=== PATIENT | female | born 1995 | race Hispanic/Latino ===

== ENCOUNTER 2023-06-02 13:29 | Emergency (ER) | payer OTHER ==
[~2023-06-02] VITALS: Ht 165.1 cm; Wt 181.4 kg
[2023-06-02] MEDS ORDERED: KETOROLAC 30MG VIAL (30MG/ML) IM ONE (16:30)
[2023-06-02 17:20] LABS: BASOPHILS # (AUTO) 0.04 K/uL (0.00-0.20); BASOPHILS % (AUTO) 0.2 % (0.0-5.0); EOSINOPHILS # (AUTO) 0.02 K/uL (0.00-0.70); EOSINOPHILS % (AUTO) 0.1 % (0.0-8.0); HEMATOCRIT 42.3 % (36-48); IMMATURE GRANULOCYTE ABSOLUTE 0.08 K/uL (0-1); LYMPHOCYTES # (AUTO) 1.4 K/uL (1.0-4.8); LYMPHOCYTES % (AUTO) 7.9 % (21.0-51.0); MEAN CORPUSCULAR HEMOGLOBIN 28.6 pg (27.0-33.0); MEAN CORPUSCULAR HGB CONC 33.1 g/dL (32.0-36.0); MEAN CORPUSCULAR VOLUME 86.5 fL (79-99); MONOCYTES # (AUTO) 0.5 K/uL (0.1-1.0); MONOCYTES % (AUTO) 2.8 % (3.0-13.0); NEUTROPHILS % (AUTO) 88.6 % (40.0-77.0); PLATELET COUNT (AUTO) 264 K/uL (130-400); RED BLOOD CELL COUNT(AUTO) 4.89 MIL/uL (4.00-5.50); RED CELL DISTRIBUTION WIDTH 13.7 % (11.0-15.5)
[2023-06-02 17:20] LABS: HCG,QUALITATIVE URINE NEGATIVE (NEGATIVE)
[2023-06-02 17:23] LABS: ADD UA MICROSCOPIC YES; APPEARANCE,URINE TURBID (CLEAR); BILIRUBIN,URINE NEGATIVE (NEGATIVE); COLOR,URINE DARK-BROWN (YELLOW); GLUCOSE, URINE (UA) NEGATIVE (NEGATIVE); KETONES,URINE 20 mg/dL (NEGATIVE); LEUKOCYTE ESTERASE ,URINE 500 Leu/uL (NEGATIVE); NITRATE,URINE NEGATIVE (NEGATIVE); OCCULT BLOOD,URINE LARGE (NEGATIVE); PH,URINE 5.5 (5.0-8.0); PROTEIN,URINE 100 mg/dL (NEGATIVE); UROBILINOGEN,URINE 0.2 mg/dL (0.2-1.0)
[2023-06-02] MEDS ORDERED: ONDA4TAB10 PO (17:55)
[2023-06-02] MEDS ORDERED: IBUP-2070 PO (17:55)
[2023-06-02 17:57] LABS: CREATININE 0.7 mg/dL (0.5-1.5); POTASSIUM 4.1 mmol/L (3.5-5.1)
[2023-06-02] MEDS ORDERED: CEFTRIAXONE 1G VIAL IVPB ONE (18:00)
[2023-06-02] MEDS ORDERED: NITR100C PO (18:00)
[2023-06-02] MEDS ORDERED: 0.9%NACL 1000ML 1,000 ML IV ONE (18:00)
[2023-06-02 18:29] LABS: MUCUS,URINE RARE LPF (None Seen); RBC,URINE TNTC /HPF (0-1); WBC CLUMP MANY /HPF (0-1); WBC,URINE TNTC /HPF (0-1); YEAST,URINE BUDDING FEW /HPF (None Seen)
[2023-06-02 18:50] VITALS: BP 131/68; PULSE 74; RESP 18; O2SAT 98
== END 2023-06-02 19:01 | disposition home or self-care (01) ==
LOC: EDH 13:29
DX: N92.0 Excessive and frequent menstruation with regular cycle (principal); N94.6 Dysmenorrhea, unspecified; Z79.899 Other long term (current) drug therapy
CPT/HCPCS: 99284; 96365; 80048; 85025; 87088; 81001; 81025; 36415; 96372; J7030; J0696; J1885